=== PATIENT | female | born 1980 | race Caucasian/White ===

== ENCOUNTER 2024-09-22 14:27 | Inpatient (IN) ==
[~2024-09-22 14:27] MED LIST: MAG-OX TAB PO SCH
[2024-09-22] MEDS ORDERED: CATAPRES TAB 0.1 MG ONE (15:11)
[2024-09-22] MEDS: CATAPRES TAB 0.1 MG PO ONE ×2 (15:12→15:51)
[2024-09-22] MEDS: ZESTRIL TAB 10 MG PO ONE (15:51)
[2024-09-22] MEDS: APRESOLINE INJ 20 MG VIAL IVP ONE (16:22)
[2024-09-22 17:13] LABS: BASOPHILS # (AUTO) 0.1 X10^3/uL (0.0-0.1); BASOPHILS % (AUTO) 0.8 % (0.2-1.0); EOSINOPHILS # (AUTO) 0.2 x10^3/uL (0.0-0.2); EOSINOPHILS % (AUTO) 2.6 % (0.9-2.9); HEMATOCRIT 37.6 % (36.0-47.0); HEMOGLOBIN 12.6 g/dL (12.0-16.0); LYMPHOCYTES # (AUTO) 1.4 X10^3/uL (1.3-2.9); LYMPHOCYTES % (AUTO) 15.3 % (21.0-51.0); MEAN CORPUSCULAR HEMOGLOBIN 26.2 pg (27.0-34.0); MEAN CORPUSCULAR HGB CONC 33.6 g/dL (33.0-35.0); MEAN CORPUSCULAR VOLUME 77.9 fL (80.0-100.0); MEAN PLATELET VOLUME 9.1 fL (7.4-11.0); MONOCYTES # (AUTO) 0.4 x10^3/uL (0.3-0.8); MONOCYTES % (AUTO) 4.1 % (0.0-13.0); NEUTROPHILS # (AUTO) 6.8 x10^3/uL (2.2-4.8); NEUTROPHILS % (AUTO) 77.2 % (42.0-75.0); PLATELET COUNT 259 X10^3/uL (150.0-450.0); RED BLOOD COUNT 4.83 X10^6/uL (3.5-5.4); RED CELL DISTRIBUTION WIDTH 15.2 % (11.6-16.5); WHITE BLOOD COUNT 8.9 X10^3/uL (3.6-10.0)
[2024-09-22] MEDS ORDERED: ZOFRAN INJ 4 MG VIAL ONE (17:14)
[2024-09-22] MEDS: ZOFRAN INJ 4 MG VIAL IVP ONE ×2 (17:21→18:42)
[2024-09-22 17:23] LABS: ALANINE AMINOTRANSFERASE 33 Units/L (12-78); ALBUMIN 3.8 g/dL (3.4-5.0); ALKALINE PHOSPHATASE 119 Units/L (46-116); ASPARTATE AMINO TRANSFERASE 18 Units/L (15-37); BLOOD UREA NITROGEN 12 mg/dL (7-18); CALCIUM 9.4 mg/dL (8.5-10.1); CARBON DIOXIDE 31.5 mmol/L (21-32); CHLORIDE 101 mmol/L (98-107); COR NA(FOR HYPERGLY) 139 mmol/L (136-145); GLUCOSE 238 mg/dL (65-99); MAGNESIUM 1.4 mg/dL (2.0-2.9); POTASSIUM 4.1 mmol/L (3.5-5.1); SODIUM 136 mmol/L (136-145); TOTAL PROTEIN 7.8 g/dL (6.4-8.2); eGFR NON BLACK RACES > 60 (>60)
[2024-09-22] MEDS: MAGNESIUM SULFATE 1 GRAM/100 mL PREMIX 1 G/100 ML BAG IV ONE ×2 (17:41→18:42)
--- NOTE | 2024-09-22 18:26 | EKG ---
Test Reason : htn Blood Pressure : */* mmHG Vent. Rate : 79 BPM Atrial Rate : 79 BPM P-R Int : 172 ms QRS Dur : 86 ms QT Int : 370 ms P-R-T Axes : 38 23 27 degrees QTc Int : 424 ms Normal sinus rhythm Cannot rule out Anterior infarct , age undetermined Abnormal ECG No previous ECGs available Confirmed by Piero Freeman MD ([id number]) on 09/23/2024 7:43:55 AM Referred By: Confirmed By: Piero Freeman MD
[2024-09-22 18:27] LABS: SERUM PREGNANCY TEST, QUAL NEGATIVE <10 mIU/mL
[2024-09-22 18:30] LABS: INR 1.06 (0.8-1.3)
[2024-09-22 18:37] LABS: CREATINE KINASE 112 Units/L (26-192)
--- NOTE | 2024-09-22 18:51 | RAD ---
EXAM: CHEST, 1 VIEW HISTORY: HTN; COMPARISON: None. FINDINGS: Upper normal heart size. Prominent pulmonary arteries. Lungs grossly clear. No visible pneumothora x or sizable pleural effusion. No acute osseous finding. IMPRESSION: Upper normal heart size. Prominent pulmonary arteries could reflect pulmonary vascular congestion or pulmonary hypertension. THIS IS AN ELECTRONICALLY VERIFIED FINAL REPORT 09/22/2024 6:47 PM - Electronically signed by Patrice Zavaleta MD
[2024-09-22] MEDS: CARDENE IV PREMIX* 40 MG/200 ML 40 MG/200 ML PIGGYBACK IV PRN (20:10)
--- NOTE | 2024-09-22 20:17 | DR.HTN ---
HPI Time Seen Time Seen by Provider: 09/22/24 18:06 Primary Care Physician Primary Care Physician: ROSELINE HPI Comment HPI Comment: Patient with complaint of headache x 2-day as well as nausea from the headaches. Patient states when her blood pressure goes up this tends to happen. Patient states she used to be on medication for hypertension as well as diabetes but when she lost a lot of weight she went off meds for all of those and was controlled with just diet. Patient states that she gained weight back she thinks her blood pressure has been running higher. Patient denies any neurologic signs other than the headaches that she gets when her blood pressure goes up. Denies any weakness. Denies numbness or tingling. Complaints Chief Complaint:: Pt states she has a hx of HTN but does not have a PCP. Pt c/o AYERS X 2 days that is now making her nauseated. Pt went to [facility] earlier today and had them check her BP - 177/113. 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 Family History History of Family Medical Conditions: Yes Family Medical History: Diabetes Mellitus, Cancer and Hypertension Social History Alcohol Use: None Do you use any recreational Drugs:: No Lives With: Alone Lives Where: Home Travel Risk Coronavirus risk:travel/contact w/high risk person: No Has patient experienced Coronavirus symptoms: No Infectious screening Have you traveled outside the country in the last 6 months?: No Isolation: Standard ROS Review of Systems Constitutional: No Symptoms Reported Eyes: No Symptoms Reported ENTM: No Symptoms Reported Respiratoy: No Symptoms Reported Cardiovascular: No Symptoms Reported Gastrointestinal/Abdominal: No Symptoms Reported, Nausea and Vomiting; negative Abdominal Pain, Constipation or Diarrhea Genitourinary: No Symptoms Reported Neurological: See HPI and Headache; negative Numbness, Paresthesia, Seizure, Tingling, Weakness or Dizziness Musculoskeletal: No Symptoms Reported Integumentary: No Symptoms Reported Hematologic/Lymphatic: No Symptoms Reported Endocrine: No Symptoms Reported Psychiatric: No Symptoms Reported All Other Systems: Reviewed and Negative PE Vital Signs Vitals: Vital Signs Temperature 97.9 F Pulse Rate 78 Pulse Rate 78 Pulse Rate 80 Pulse Rate 88 Pulse Rate 78 Pulse Rate 76 Pulse Rate 78 Pulse Rate 78 Pulse Rate 80 Pulse Rate 79 Pulse Rate 78 Pulse Rate 76 Pulse Rate 75 Pulse Rate 75 Pulse Rate 76 Pulse Rate 75 Pulse Rate 75 Pulse Rate 74 Pulse Rate 72 Pulse Rate 74 Pulse Rate 74 Pulse Rate 73 Pulse Rate 72 Pulse Rate 75 Pulse Rate 69 Pulse Rate 72 Pulse Rate 72 Pulse Rate 73 Pulse Rate 71 Pulse Rate 68 Pulse Rate 67 Pulse Rate 67 Pulse Rate 68 Pulse Rate 67 Pulse Rate 68 Pulse Rate 64 Pulse Rate 64 Pulse Rate 68 Pulse Rate 68 Pulse Rate 67 Pulse Rate 68 Pulse Rate 71 Pulse Rate 70 Pulse Rate 73 Pulse Rate 76 Respiratory Rate 13 Respiratory Rate 16 Respiratory Rate 16 Respiratory Rate 15 Respiratory Rate 15 Respiratory Rate 15 Respiratory Rate 14 Respiratory Rate 16 Respiratory Rate 14 Respiratory Rate 14 Respiratory Rate 13 Respiratory Rate 16 Respiratory Rate 13 Respiratory Rate 14 Respiratory Rate 13 Respiratory Rate 12 Respiratory Rate 13 Respiratory Rate 13 Respiratory Rate 13 Respiratory Rate 15 Respiratory Rate 17 Respiratory Rate 21 Respiratory Rate 16 Respiratory Rate 14 Respiratory Rate 13 Respiratory Rate 12 Respiratory Rate 10 Respiratory Rate 10 Respiratory Rate 13 Respiratory Rate 13 Respiratory Rate 14 Respiratory Rate 16 Respiratory Rate 12 Respiratory Rate 12 Respiratory Rate 19 Respiratory Rate 19 Blood Pressure 199/96 Blood Pressure 180/83 Blood Pressure 204/94 Blood Pressure 188/87 Blood Pressure 178/87 Blood Pressure 167/84 Blood Pressure 169/87 Blood Pressure 169/87 Blood Pressure 169/87 Blood Pressure 176/89 Blood Pressure 193/91 Blood Pressure 199/86 Blood Pressure 181/84 Blood Pressure 184/75 Blood Pressure 186/89 Blood Pressure 187/85 Blood Pressure 180/88 Blood Pressure 186/89 Blood Pressure 198/86 Blood Pressure 198/96 Blood Pressure 178/89 Blood Pressure 190/93 Blood Pressure 184/90 Blood Pressure 184/90 Blood Pressure 187/88 Blood Pressure 187/88 Blood Pressure 193/92 Blood Pressure 197/92 Blood Pressure 192/84 Blood Pressure 193/88 Blood Pressure 208/100 Blood Pressure 218/93 Blood Pressure 218/93 Blood Pressure 208/94 Blood Pressure 208/94 Blood Pressure 208/94 Blood Pressure 182/87 Blood Pressure 182/87 Blood Pressure 182/87 Blood Pressure 182/87 Blood Pressure 185/86 Blood Pressure 195/84 Blood Pressure 180/86 Blood Pressure 186/89 Blood Pressure 198/95 O2 Sat by Pulse Oximetry 99 O2 Sat by Pulse Oximetry 98 O2 Sat by Pulse Oximetry 99 O2 Sat by Pulse Oximetry 98 O2 Sat by Pulse Oximetry 99 O2 Sat by Pulse Oximetry 99 O2 Sat by Pulse Oximetry 99 O2 Sat by Pulse Oximetry 98 O2 Sat by Pulse Oximetry 98 O2 Sat by Pulse Oximetry 99 O2 Sat by Pulse Oximetry 100 O2 Sat by Pulse Oximetry 100 O2 Sat by Pulse Oximetry 99 O2 Sat by Pulse Oximetry 100 O2 Sat by Pulse Oximetry 100 O2 Sat by Pulse Oximetry 100 O2 Sat by Pulse Oximetry 100 O2 Sat by Pulse Oximetry 100 O2 Sat by Pulse Oximetry 100 O2 Sat by Pulse Oximetry 100 O2 Sat by Pulse Oximetry 100 O2 Sat by Pulse Oximetry 100 O2 Sat by Pulse Oximetry 100 O2 Sat by Pulse Oximetry 100 O2 Sat by Pulse Oximetry 100 O2 Sat by Pulse Oximetry 100 O2 Sat by Pulse Oximetry 97 O2 Sat by Pulse Oximetry 99 O2 Sat by Pulse Oximetry 98 O2 Sat by Pulse Oximetry 97 O2 Sat by Pulse Oximetry 97 O2 Sat by Pulse Oximetry 96 O2 Sat by Pulse Oximetry 97 O2 Sat by Pulse Oximetry 97 O2 Sat by Pulse Oximetry 97 O2 Sat by Pulse Oximetry 97 O2 Sat by Pulse Oximetry 96 O2 Sat by Pulse Oximetry 97 O2 Sat by Pulse Oximetry 96 General Limitations: No Limitations General Appearance: Alert and In No Apparent Distress Head Head Exam: Normal Inspection Eyes Eye exam: Normal Appearance ENT ENT Exam: Normal Exam Neck Neck Exam: Normal Inspection Chest Chest Inspection: Normal Inspection Respiratory Respiratory Exam: Normal Lung Sounds Bilat Respiratory Exam: Bilateral: Clear to Auscultation Cardiovascular Cardiovascular Exam: Regular Rate and Normal Rhythm Abdominal Exam Abdominal Exam: Normal Inspection, Normal Bowel Sounds and Soft; negative Distention, Tenderness, Guarding, Rebound or Rigidity Extremities Extremities Exam: Normal Inspection Back Back Exam: Normal Inspection Neurologic Neurological Exam: Alert, Oriented X3, CN II-XII Intact, Normal Gait and Reflexes Normal; negative Motor Sensory Deficit Psychiatric Psychiatric Exam: Normal Affect and Normal Mood Skin Skin Exam: Warm, Dry, Intact and Normal Color COURSE Treatment Treatment: Patient had some improvement while in the ER but blood pressure continues to elevate and as it goes up her headache returns as well as the nausea. We have tried multiple doses of different medications and finally have started on nicardipine drip. Phenergan added to the Zofran. Toradol injection for the headache. Consultation Called: 20:23 Consultation Comments: Discussed case with Dr. Garzon and he is agreeable to admission. [facility] Labs Reviewed 09/22/24 17:05 09/22/24 17:05 Laboratory: WBC 8.9 X10^3/uL (3.6-10.0) 09/22/24 17:05 RBC 4.83 X10^6/uL (3.5-5.4) 09/22/24 17:05 Hgb 12.6 g/dL (12.0-16.0) 09/22/24 17:05 Hct 37.6 % (36.0-47.0) 09/22/24 17:05 MCV 77.9 fL (80.0-100.0) L 09/22/24 17:05 MCH 26.2 pg (27.0-34.0) L 09/22/24 17:05 MCHC 33.6 g/dL (33.0-35.0) 09/22/24 17:05 RDW 15.2 % (11.6-16.5) 09/22/24 17:05 Plt Count 259 X10^3/uL (150.0-450.0) 09/22/24 17:05 MPV 9.1 fL (7.4-11.0) 09/22/24 17:05 Neut % (Auto) 77.2 % (42.0-75.0) H 09/22/24 17:05 Lymph % (Auto) 15.3 % (21.0-51.0) L 09/22/24 17:05 [place] % (Auto) 4.1 % (0.0-13.0) 09/22/24 17:05 Eos % (Auto) 2.6 % (0.9-2.9) 09/22/24 17:05 Baso % (Auto) 0.8 % (0.2-1.0) 09/22/24 17:05 Neut # (Auto) 6.8 x10^3/uL (2.2-4.8) H 09/22/24 17:05 Lymph # (Auto) 1.4 X10^3/uL (1.3-2.9) 09/22/24 17:05 [place] # (Auto) 0.4 x10^3/uL (0.3-0.8) 09/22/24 17:05 Eos # (Auto) 0.2 x10^3/uL (0.0-0.2) 09/22/24 17:05 Baso # (Auto) 0.1 X10^3/uL (0.0-0.1) 09/22/24 17:05 Absolute Nucleated RBC 0.0 /100WBC 09/22/24 17:05 PT 14.0 SECONDS (11.8-14.3) 09/22/24 17:05 INR Target Range - 09/22/24 17:05 INR 1.06 (0.8-1.3) 09/22/24 17:05 APTT 29.4 SECONDS (22.9-36.5) 09/22/24 17:05 PTT Comment - 09/22/24 17:05 Sodium 136 mmol/L (136-145) 09/22/24 17:05 Corrected Sodium 139 mmol/L (136-145) 09/22/24 17:05 Potassium 4.1 mmol/L (3.5-5.1) 09/22/24 17:05 Chloride 101 mmol/L (98-107) 09/22/24 17:05 Carbon Dioxide 31.5 mmol/L (21-32) 09/22/24 17:05 BUN 12 mg/dL (7-18) 09/22/24 17:05 Creatinine 0.80 mg/dL (0.55-1.02) 09/22/24 17:05 Est GFR (MDRD) Af Amer > 60 (>60) 09/22/24 17:05 Est GFR (MDRD) Non-Af > 60 (>60) 09/22/24 17:05 Glucose 238 mg/dL (65-99) H 09/22/24 17:05 Calcium 9.4 mg/dL (8.5-10.1) 09/22/24 17:05 Corrected Calcium TNP 09/22/24 17:05 Magnesium 1.4 mg/dL (2.0-2.9) L 09/22/24 17:05 Total Bilirubin 0.30 mg/dL (0.2-1.0) 09/22/24 17:05 AST 18 Units/L (15-37) 09/22/24 17:05 ALT 33 Units/L (12-78) 09/22/24 17:05 Alkaline Phosphatase 119 Units/L (46-116) H 09/22/24 17:05 Creatine Kinase 112 Units/L (26-192) 09/22/24 17:05 Troponin I High Sens < 4.0 ng/L (4.0-60.0) L 09/22/24 17:05 Total Protein 7.8 g/dL (6.4-8.2) 09/22/24 17:05 Albumin 3.8 g/dL (3.4-5.0) 09/22/24 17:05 Globulin 4.0 g/dL (2.5-4.5) 09/22/24 17:05 Albumin/Globulin Ratio 1.0 Ratio (1.1-2.1) L 09/22/24 17:05 HCG, Qual Negative <10 mIU/mL 09/22/24 17:05 Opioid Opioid Risk Tool Age (Parker box if 16-45): Yes History of Preadolescent Sexual Abuse: No Total: 1 Total Score Risk Category: Low Risk Copyright: Renny LUJAN predicting aberrant behaviors Discharge Plan Diagnosis Discharge Problem: Hypertensive emergency without congestive heart failure, Headache Discharge Plan Patient Disposition: 09 ADMITTED INPATIENT Condition: Stable Prescriptions: No Action levocetirizine [Xyzal] 5 mg tablet 5 mg PO QDAY 30 Days Qty: 30 1RF Health Concerns: Post Hospitalization: new medications and changes needed to prevent readmission or further decline. Pt educated and given instructions on all concerns. Plan of Treatment: Continue with present treatment and follow up plan. Pt is to keep follow up appointment as instructed and take medications as ordered. Orders to Discharge Patient Discharge Orders: Transfer (Routine); Ordered 09/22/24 Ordered By: Keith Mahan Follow ups/Referrals Follow ups/Referrals: NFD,None [Primary Care Provider] - 3 days Instructions Stand Alone Forms: Find Help Web Site, Post Hospital Follow Up Care
[2024-09-22] MEDS: NS 500 ML IV 500 ML IV ONE (20:26)
[2024-09-22] MEDS: PHENERGAN INJ 25 MG IM ONE (20:27)
[2024-09-22] MEDS: TORADOL 15 MG VIAL IVP ONE (20:28)
[2024-09-22] MEDS ORDERED: CONSULT PHARMACY - POTASSIUM & MAGNESIUM XX SCH (21:16)
[2024-09-22 21:31] VITALS: BMI 42.3
[2024-09-22] MEDS: NovoLIN R (or HumuLIN R) SUBCUT PRN (21:49)
[2024-09-22] MEDS: NS 1,000 ML IV 1,000 ML IV SCH (21:50)
[2024-09-23 05:09] LABS: BASOPHILS # (AUTO) 0.1 X10^3/uL (0.0-0.1); BASOPHILS % (AUTO) 0.5 % (0.2-1.0); EOSINOPHILS # (AUTO) 0.1 x10^3/uL (0.0-0.2); EOSINOPHILS % (AUTO) 1.1 % (0.9-2.9); HEMATOCRIT 37.1 % (36.0-47.0); HEMOGLOBIN 12.3 g/dL (12.0-16.0); LYMPHOCYTES % (AUTO) 16.6 % (21.0-51.0); MEAN CORPUSCULAR HEMOGLOBIN 25.8 pg (27.0-34.0); MEAN CORPUSCULAR HGB CONC 33.2 g/dL (33.0-35.0); MEAN CORPUSCULAR VOLUME 77.6 fL (80.0-100.0); MEAN PLATELET VOLUME 9.4 fL (7.4-11.0); MONOCYTES # (AUTO) 0.6 x10^3/uL (0.3-0.8); MONOCYTES % (AUTO) 4.7 % (0.0-13.0); NEUTROPHILS # (AUTO) 9.4 x10^3/uL (2.2-4.8); NEUTROPHILS % (AUTO) 77.1 % (42.0-75.0); PLATELET COUNT 281 X10^3/uL (150.0-450.0); RED BLOOD COUNT 4.79 X10^6/uL (3.5-5.4); RED CELL DISTRIBUTION WIDTH 15.3 % (11.6-16.5); WHITE BLOOD COUNT 12.2 X10^3/uL (3.6-10.0)
[2024-09-23 05:24] LABS: ALANINE AMINOTRANSFERASE 25 Units/L (12-78); ALBUMIN 3.4 g/dL (3.4-5.0); ALKALINE PHOSPHATASE 103 Units/L (46-116); ASPARTATE AMINO TRANSFERASE 18 Units/L (15-37); BLOOD UREA NITROGEN 10 mg/dL (7-18); CALCIUM 8.8 mg/dL (8.5-10.1); CARBON DIOXIDE 24.9 mmol/L (21-32); CHLORIDE 101 mmol/L (98-107); COR NA(FOR HYPERGLY) 141 mmol/L (136-145); CREATININE 0.63 mg/dL (0.55-1.02); GLUCOSE 172 mg/dL (65-99); POTASSIUM 3.5 mmol/L (3.5-5.1); SODIUM 139 mmol/L (136-145); TOTAL PROTEIN 7.3 g/dL (6.4-8.2); eGFR NON BLACK RACES > 60 (>60)
[2024-09-23] MEDS ORDERED: ZESTRIL TAB 20 MG PO SCH (09:00)
[2024-09-23] MEDS ORDERED: CONSULT PHARMACY - POTASSIUM & MAGNESIUM XX SCH (09:00)
--- NOTE | 2024-09-23 09:35 | DR.H&P ---
H&P History & Physical for Day of: H&P Date: 09/23/24 Chief Complaint Chief Complaint: headache, elevated BP History of Present Illness History of Present Illness: Ms. Vila is a 43-year-old female with a past medical history of type 2 diabetes, hypertension presented with headache, nausea and elevated BP. She used to be on blood pressure medication years ago but stopped as she had significant weight loss. She says she has gained 50 pounds back and did not restart taking her blood pressure medications. She was seen fo jhonathan MADISON a few weeks ago and was noted to have elevated blood pressure but did not follow-up. She reports having worsening headache and nausea for the past couple days. She also had intermittent shortness of breath. She checked her blood pressure yesterday and it was 177/113. In the ER her blood pressure was 204/94. She was given hydralazine, clonidine, lisinopril but her blood pressure continued to remain elevated. She was started on Cardene drip and admitted for further management. She was admitted to the ICU. She is feeling better this morning. Her blood pressure is better controlled, 132/68 this morning. She is currently on 2.5 mg of Cardene. Lab/imaging reviewed: - WBC 12.2 hemoglobin 12.3 potassium 3.5 magnesium 1.7 - Chest x-ray reviewed Plan: Continue to monitor in ICU. Continue telemetry. Stop Cardene drip, start lisinopril 10 mg daily. Monitor blood pressure closely. Patient reports having a history of murmur when she was younger but never followed up. Will order echocardiogram. Replace electrolytes as per protocol. Monitor a.m. labs and imaging. Time spent for clinical assessment, reviewing labs/imaging, physical exam, decision making and documentation greater than 45 mins. 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 Family History Family Medical History: Diabetes Mellitus and Hypertension Social History Alcohol Use: None Drug Use: None Allergies Allergies Allergy/AdvReac Type Severity Reaction Status Date / Time No Known Allergies Allergy Verified 09/22/24 14:56 Labs 09/23/24 04:12 09/23/24 04:12 Labs: Laboratory WBC 12.2 X10^3/uL (3.6-10.0) H 09/23/24 04:12 RBC 4.79 X10^6/uL (3.5-5.4) 09/23/24 04:12 Hgb 12.3 g/dL (12.0-16.0) 09/23/24 04:12 Hct 37.1 % (36.0-47.0) 09/23/24 04:12 MCV 77.6 fL (80.0-100.0) L 09/23/24 04:12 MCH 25.8 pg (27.0-34.0) L 09/23/24 04:12 MCHC 33.2 g/dL (33.0-35.0) 09/23/24 04:12 RDW 15.3 % (11.6-16.5) 09/23/24 04:12 Plt Count 281 X10^3/uL (150.0-450.0) 09/23/24 04:12 MPV 9.4 fL (7.4-11.0) 09/23/24 04:12 Neut % (Auto) 77.1 % (42.0-75.0) H 09/23/24 04:12 Lymph % (Auto) 16.6 % (21.0-51.0) L 09/23/24 04:12 [place] % (Auto) 4.7 % (0.0-13.0) 09/23/24 04:12 Eos % (Auto) 1.1 % (0.9-2.9) 09/23/24 04:12 Baso % (Auto) 0.5 % (0.2-1.0) 09/23/24 04:12 Neut # (Auto) 9.4 x10^3/uL (2.2-4.8) H 09/23/24 04:12 Lymph # (Auto) 2.0 X10^3/uL (1.3-2.9) 09/23/24 04:12 [place] # (Auto) 0.6 x10^3/uL (0.3-0.8) 09/23/24 04:12 Eos # (Auto) 0.1 x10^3/uL (0.0-0.2) 09/23/24 04:12 Baso # (Auto) 0.1 X10^3/uL (0.0-0.1) 09/23/24 04:12 Absolute Nucleated RBC 0.0 /100WBC 09/23/24 04:12 PT 14.0 SECONDS (11.8-14.3) 09/22/24 17:05 INR Target Range - 09/22/24 17:05 INR 1.06 (0.8-1.3) 09/22/24 17:05 APTT 29.4 SECONDS (22.9-36.5) 09/22/24 17:05 PTT Comment - 09/22/24 17:05 Sodium 139 mmol/L (136-145) 09/23/24 04:12 Corrected Sodium 141 mmol/L (136-145) 09/23/24 04:12 Potassium 3.5 mmol/L (3.5-5.1) 09/23/24 04:12 Chloride 101 mmol/L (98-107) 09/23/24 04:12 Carbon Dioxide 24.9 mmol/L (21-32) 09/23/24 04:12 BUN 10 mg/dL (7-18) 09/23/24 04:12 Creatinine 0.63 mg/dL (0.55-1.02) 09/23/24 04:12 Est GFR (MDRD) Af Amer > 60 (>60) 09/23/24 04:12 Est GFR (MDRD) Non-Af > 60 (>60) 09/23/24 04:12 Glucose 172 mg/dL (65-99) H 09/23/24 04:12 POC Glucose (mg/dL) 164 mg/dL (65-99) H 09/23/24 05:06 Calcium 8.8 mg/dL (8.5-10.1) 09/23/24 04:12 Corrected Calcium TNP 09/23/24 04:12 Magnesium 1.7 mg/dL (2.0-2.9) L 09/23/24 04:12 Total Bilirubin 0.30 mg/dL (0.2-1.0) 09/23/24 04:12 AST 18 Units/L (15-37) 09/23/24 04:12 ALT 25 Units/L (12-78) 09/23/24 04:12 Alkaline Phosphatase 103 Units/L (46-116) 09/23/24 04:12 Creatine Kinase 112 Units/L (26-192) 09/22/24 17:05 Troponin I High Sens < 4.0 ng/L (4.0-60.0) L 09/22/24 20:10 Total Protein 7.3 g/dL (6.4-8.2) 09/23/24 04:12 Albumin 3.4 g/dL (3.4-5.0) 09/23/24 04:12 Globulin 3.9 g/dL (2.5-4.5) 09/23/24 04:12 Albumin/Globulin Ratio 0.9 Ratio (1.1-2.1) L 09/23/24 04:12 HCG, Qual Negative <10 mIU/mL 09/22/24 17:05 Review of Systems Constitutional: No Symptoms Reported Eyes: No Symptoms Reported Respiratory: Shortness of Breath Cardiovascular: No Symptoms Reported Gastrointestinal: No Symptoms Reported Genitourinary: No Symptoms Reported Musculoskeletal: No Symptoms Reported Skin: No Symptoms Reported Neurological: Other (headache ) Physical Exam Vital Signs: Vital Signs Temperature 98.1 F Temperature 98 F Pulse Rate 79 Pulse Rate 71 Pulse Rate 75 Pulse Rate 69 Pulse Rate 67 Pulse Rate 74 Pulse Rate 74 Pulse Rate 65 Pulse Rate 83 Pulse Rate 75 Pulse Rate 69 Pulse Rate 69 Pulse Rate 70 Pulse Rate 72 Pulse Rate 72 Pulse Rate 69 Pulse Rate 73 Pulse Rate 72 Pulse Rate 72 Pulse Rate 80 Pulse Rate 75 Pulse Rate 73 Pulse Rate 79 Respiratory Rate 23 Respiratory Rate 12 Respiratory Rate 13 Respiratory Rate 14 Respiratory Rate 15 Respiratory Rate 17 Respiratory Rate 13 Respiratory Rate 14 Respiratory Rate 19 Respiratory Rate 16 Respiratory Rate 14 Respiratory Rate 14 Respiratory Rate 13 Respiratory Rate 14 Respiratory Rate 15 Respiratory Rate 15 Respiratory Rate 15 Respiratory Rate 19 Respiratory Rate 13 Respiratory Rate 31 Respiratory Rate 17 Respiratory Rate 17 Respiratory Rate 26 Blood Pressure 132/68 Blood Pressure 136/60 Blood Pressure 109/57 Blood Pressure 105/55 Blood Pressure 112/60 Blood Pressure 121/57 Blood Pressure 116/56 Blood Pressure 112/57 Blood Pressure 111/59 Blood Pressure 104/61 Blood Pressure 114/61 Blood Pressure 111/59 Blood Pressure 109/59 Blood Pressure 107/55 Blood Pressure 107/51 Blood Pressure 115/57 Blood Pressure 127/62 Blood Pressure 117/56 Blood Pressure 119/57 Blood Pressure 121/57 Blood Pressure 125/57 Blood Pressure 108/54 Blood Pressure 106/57 O2 Sat by Pulse Oximetry 96 O2 Sat by Pulse Oximetry 97 O2 Sat by Pulse Oximetry 91 O2 Sat by Pulse Oximetry 93 O2 Sat by Pulse Oximetry 95 O2 Sat by Pulse Oximetry 99 O2 Sat by Pulse Oximetry 96 O2 Sat by Pulse Oximetry 95 O2 Sat by Pulse Oximetry 97 O2 Sat by Pulse Oximetry 92 O2 Sat by Pulse Oximetry 93 O2 Sat by Pulse Oximetry 93 O2 Sat by Pulse Oximetry 92 O2 Sat by Pulse Oximetry 91 O2 Sat by Pulse Oximetry 91 O2 Sat by Pulse Oximetry 96 O2 Sat by Pulse Oximetry 95 O2 Sat by Pulse Oximetry 94 O2 Sat by Pulse Oximetry 95 O2 Sat by Pulse Oximetry 97 O2 Sat by Pulse Oximetry 93 O2 Sat by Pulse Oximetry 94 O2 Sat by Pulse Oximetry 97 Oriented: Normal Throat: Normal Respiratory: Clear Throughout Cardiovascular: Normal Auscultation: Bowel Sounds: Normal Palpation: Normal Tenderness: Normal Skin: Normal Musculoskeletal: Normal Psychiatric: Normal Mood Description: Calm Affect: Normal Speech Pattern: Clear and Appropriate Assessment/Plan (1) Hypertensive emergency without congestive heart failure: Status: Acute (2) Headache: Qualifiers: Headache type: other headache syndrome Qualified Code(s): G44.89 - Other headache syndrome Status: Acute (3) Heart murmur: Status: Chronic (4) Hypokalemia: Status: Acute (5) Hypomagnesemia: Status: Acute (6) Type 2 diabetes mellitus: Qualifiers: Diabetes mellitus complication status: with hyperglycemia Diabetes mellitus penitentiary insulin use: without penitentiary use Qualified Code(s): E11.65 - Type 2 diabetes mellitus with hyperglycemia Status: Chronic (7) HTN (hypertension): Qualifiers: Hypertension type: primary hypertension Qualified Code(s): I10 - Essential (primary) hypertension Status: Chronic Review H&P Reviewed: Yes Patient was examined?: Yes
[2024-09-23] MEDS: K-DUR TAB 20 MEQ PO SCH (10:56)
[2024-09-23] MEDS: MAG-OX TAB PO SCH (10:56)
[2024-09-23] MEDS: ZESTRIL TAB 10 MG PO SCH (10:57)
--- NOTE | 2024-09-23 15:10 | RAD ---
EXAM: CHEST, 1 VIEW HISTORY: increased WBC; Unavailable COMPARISON: Yesterday FINDINGS: The trachea is midline. The cardiac silhouette is unremarkable. The lungs are clear without focal inf iltrate or effusion. The bony thorax is unremarkable. IMPRESSION: No acute cardiopulmonary disease. THIS IS AN ELECTRONICALLY VERIFIED FINAL REPORT 09/23/2024 3:06 PM - Electronically signed by Андрей Jeffries MD
[2024-09-23] MEDS: SNACK - Diabetic Appropriate PO SCH (21:05)
[2024-09-24 04:52] LABS: BASOPHILS % (AUTO) 0.6 % (0.2-1.0); EOSINOPHILS # (AUTO) 0.3 x10^3/uL (0.0-0.2); EOSINOPHILS % (AUTO) 3.5 % (0.9-2.9); HEMATOCRIT 35.3 % (36.0-47.0); HEMOGLOBIN 11.9 g/dL (12.0-16.0); LYMPHOCYTES # (AUTO) 1.9 X10^3/uL (1.3-2.9); LYMPHOCYTES % (AUTO) 25.7 % (21.0-51.0); MEAN CORPUSCULAR HEMOGLOBIN 26.2 pg (27.0-34.0); MEAN CORPUSCULAR HGB CONC 33.6 g/dL (33.0-35.0); MEAN CORPUSCULAR VOLUME 78.1 fL (80.0-100.0); MEAN PLATELET VOLUME 9.5 fL (7.4-11.0); MONOCYTES # (AUTO) 0.5 x10^3/uL (0.3-0.8); NEUTROPHILS # (AUTO) 4.9 x10^3/uL (2.2-4.8); NEUTROPHILS % (AUTO) 64.2 % (42.0-75.0); PLATELET COUNT 221 X10^3/uL (150.0-450.0); RED BLOOD COUNT 4.53 X10^6/uL (3.5-5.4); RED CELL DISTRIBUTION WIDTH 15.6 % (11.6-16.5); WHITE BLOOD COUNT 7.6 X10^3/uL (3.6-10.0)
[2024-09-24 05:03] LABS: ALANINE AMINOTRANSFERASE 22 Units/L (12-78); ALBUMIN 2.9 g/dL (3.4-5.0); ALKALINE PHOSPHATASE 90 Units/L (46-116); ASPARTATE AMINO TRANSFERASE 16 Units/L (15-37); BLOOD UREA NITROGEN 11 mg/dL (7-18); CALCIUM 8.8 mg/dL (8.5-10.1); CARBON DIOXIDE 27.1 mmol/L (21-32); CHLORIDE 103 mmol/L (98-107); COR CA(FOR HYPOALB) 9.7 mg/dL (8.5-10.1); COR NA(FOR HYPERGLY) 142 mmol/L (136-145); CREATININE 0.68 mg/dL (0.55-1.02); GLUCOSE 213 mg/dL (65-99); MAGNESIUM 1.6 mg/dL (2.0-2.9); POTASSIUM 3.9 mmol/L (3.5-5.1); SODIUM 139 mmol/L (136-145); TOTAL PROTEIN 6.4 g/dL (6.4-8.2); eGFR NON BLACK RACES > 60 (>60)
[2024-09-24] MEDS: CONSULT PHARMACY - POTASSIUM & MAGNESIUM XX SCH (08:00)
[2024-09-24 09:35] VITALS: PULSE 61; RESP 16
[2024-09-24] MEDS: MAG-OX TAB PO SCH (09:35)
[2024-09-24 13:50] VITALS: BP 155/80; TEMP 98.2; O2SAT 99
--- NOTE | 2024-09-25 11:59 | W.DIS.FURT ---
Summary of Discharge Discharge Summary of Date Date of Exam: 09/24/24 Admission Date Date of Admission: 09/22/24 Admission Diagnosis Patient Problems (Updated 09/23/24 @ 09:34 by Kimber Escalante MD) Hypertensive emergency without congestive heart failure (Acute) I16.1 Headache (Acute) R51.9 Hospital Course: Ms. Vila is a 43-year-old female with a past medical history of type 2 diabetes, hypertension presented with headache, nausea and elevated BP. She used to be on blood pressure medication years ago but stopped as she had significant weight loss. She says she has gained 50 pounds back and did not restart taking her blood pressure medications. She was seen for URI a few weeks ago and was noted to have elevated blood pressure but did not follow-up. She reports having worsening headache and nausea for the past couple days. She also had intermittent shortness of breath. She checked her blood pressure yesterday and it was 177/113. In the ER her blood pressure was 204/94. She was given hydralazine, clonidine, lisinopril but her blood pressure continued to remain elevated. She was started on Cardene drip and admitted for further management. She was admitted to the ICU. She is feeling better this morning. Her blood pressure is better controlled, 132/68 this morning. She was weaned off Cardene drip. She was started on lisinopril 10 mg. Her labs were monitored daily and electrolytes replaced as needed. Repeat chest x-ray was clear. She also had echocardiogram done. Patient was feeling better and stable to be discharged. She will follow-up with PCP regarding hypertension and diabetes. She will also follow-up patient for echo results. Vital Signs: Vital Signs (72 hours) 09/22/24 14:49 09/22/24 15:07 09/22/24 15:08 Temperature 97.9 F Pulse Rate 76 73 Respiratory Rate 19 19 Blood Pressure 198/95 186/89 O2 Sat by Pulse Oximetry 96 97 Oxygen Delivery Method Room Air Oxygen Flow Rate FIO2% 09/22/24 15:08 09/22/24 15:15 09/22/24 15:20 Temperature Pulse Rate 70 71 Respiratory Rate 12 12 Blood Pressure 180/86 O2 Sat by Pulse Oximetry 96 97 Oxygen Delivery Method Oxygen Flow Rate FIO2% 09/22/24 15:20 09/22/24 15:30 09/22/24 15:30 Temperature Pulse Rate 68 67 Respiratory Rate 16 14 Blood Pressure 195/84 O2 Sat by Pulse Oximetry 97 97 Oxygen Delivery Method Oxygen Flow Rate FIO2% 09/22/24 15:40 09/22/24 15:40 09/22/24 15:45 Temperature Pulse Rate 68 68 Respiratory Rate 13 13 Blood Pressure 185/86 O2 Sat by Pulse Oximetry 97 96 Oxygen Delivery Method Oxygen Flow Rate FIO2% 09/22/24 15:50 09/22/24 15:50 09/22/24 15:50 Temperature Pulse Rate 64 Respiratory Rate 10 L Blood Pressure 182/87 182/87 O2 Sat by Pulse Oximetry 97 Oxygen Delivery Method Oxygen Flow Rate FIO2% 09/22/24 15:50 09/22/24 15:50 09/22/24 15:50 Temperature Pulse Rate 64 Respiratory Rate 10 L Blood Pressure 182/87 182/87 O2 Sat by Pulse Oximetry 97 Oxygen Delivery Method Oxygen Flow Rate FIO2% 09/22/24 15:59 09/22/24 16:00 09/22/24 16:00 Temperature Pulse Rate 68 Respiratory Rate 12 Blood Pressure 208/94 208/94 O2 Sat by Pulse Oximetry 98 Oxygen Delivery Method Oxygen Flow Rate FIO2% 09/22/24 16:00 09/22/24 16:01 09/22/24 16:11 Temperature Pulse Rate 67 68 Respiratory Rate 13 14 Blood Pressure 208/94 O2 Sat by Pulse Oximetry 99 97 Oxygen Delivery Method Oxygen Flow Rate FIO2% 09/22/24 16:11 09/22/24 16:11 09/22/24 16:15 Temperature Pulse Rate 67 Respiratory Rate 16 Blood Pressure 218/93 218/93 O2 Sat by Pulse Oximetry 100 Oxygen Delivery Method Oxygen Flow Rate FIO2% 09/22/24 16:20 09/22/24 16:20 09/22/24 16:25 Temperature Pulse Rate 67 68 Respiratory Rate 21 17 Blood Pressure 208/100 O2 Sat by Pulse Oximetry 100 100 Oxygen Delivery Method Oxygen Flow Rate FIO2% 09/22/24 16:25 09/22/24 16:30 09/22/24 16:30 Temperature Pulse Rate 71 Respiratory Rate 15 Blood Pressure 193/88 192/84 O2 Sat by Pulse Oximetry 100 Oxygen Delivery Method Oxygen Flow Rate FIO2% 09/22/24 16:35 09/22/24 16:35 09/22/24 16:40 Temperature Pulse Rate 73 72 Respiratory Rate 13 13 Blood Pressure 197/92 O2 Sat by Pulse Oximetry 100 100 Oxygen Delivery Method Oxygen Flow Rate FIO2% 09/22/24 16:40 09/22/24 16:45 09/22/24 16:45 Temperature Pulse Rate Respiratory Rate Blood Pressure 193/92 187/88 187/88 O2 Sat by Pulse Oximetry Oxygen Delivery Method Oxygen Flow Rate FIO2% 09/22/24 16:45 09/22/24 16:50 09/22/24 16:50 Temperature Pulse Rate 72 Respiratory Rate 13 Blood Pressure 184/90 184/90 O2 Sat by Pulse Oximetry 100 Oxygen Delivery Method Oxygen Flow Rate FIO2% 09/22/24 16:50 09/22/24 16:55 09/22/24 16:55 Temperature Pulse Rate 69 75 Respiratory Rate 12 13 Blood Pressure 190/93 O2 Sat by Pulse Oximetry 100 100 Oxygen Delivery Method Oxygen Flow Rate FIO2% 09/22/24 16:59 09/22/24 17:00 09/22/24 17:00 Temperature Pulse Rate 72 73 Respiratory Rate 14 13 Blood Pressure 178/89 O2 Sat by Pulse Oximetry 100 100 Oxygen Delivery Method Oxygen Flow Rate FIO2% 09/22/24 17:05 09/22/24 17:05 09/22/24 17:10 Temperature Pulse Rate 74 Respiratory Rate 16 Blood Pressure 198/96 198/86 O2 Sat by Pulse Oximetry 100 Oxygen Delivery Method Oxygen Flow Rate FIO2% 09/22/24 17:10 09/22/24 17:20 09/22/24 17:21 Temperature Pulse Rate 74 72 Respiratory Rate 13 Blood Pressure O2 Sat by Pulse Oximetry 100 99 100 Oxygen Delivery Method Oxygen Flow Rate FIO2% 09/22/24 17:21 09/22/24 17:25 09/22/24 17:25 Temperature Pulse Rate 74 Respiratory Rate Blood Pressure 186/89 180/88 O2 Sat by Pulse Oximetry 100 Oxygen Delivery Method Oxygen Flow Rate FIO2% 09/22/24 17:30 09/22/24 17:30 09/22/24 17:35 Temperature Pulse Rate 75 75 Respiratory Rate Blood Pressure 187/85 O2 Sat by Pulse Oximetry 99 98 Oxygen Delivery Method Oxygen Flow Rate FIO2% 09/22/24 17:35 09/22/24 17:40 09/22/24 17:40 Temperature Pulse Rate 76 Respiratory Rate Blood Pressure 186/89 184/75 O2 Sat by Pulse Oximetry 98 Oxygen Delivery Method Oxygen Flow Rate FIO2% 09/22/24 17:45 09/22/24 17:45 09/22/24 18:00 Temperature Pulse Rate 75 75 Respiratory Rate Blood Pressure 181/84 O2 Sat by Pulse Oximetry 99 99 Oxygen Delivery Method Oxygen Flow Rate FIO2% 09/22/24 18:00 09/22/24 18:15 09/22/24 18:15 Temperature Pulse Rate 76 Respiratory Rate 14 Blood Pressure 199/86 193/91 O2 Sat by Pulse Oximetry 99 Oxygen Delivery Method Oxygen Flow Rate FIO2% 09/22/24 18:32 09/22/24 18:45 09/22/24 18:45 Temperature Pulse Rate 78 79 Respiratory Rate 14 Blood Pressure 176/89 O2 Sat by Pulse Oximetry Oxygen Delivery Method Oxygen Flow Rate FIO2% 09/22/24 18:46 09/22/24 18:46 09/22/24 18:46 Temperature Pulse Rate 80 Respiratory Rate 16 Blood Pressure 169/87 169/87 O2 Sat by Pulse Oximetry Oxygen Delivery Method Oxygen Flow Rate FIO2% 09/22/24 18:46 09/22/24 18:59 09/22/24 19:00 Temperature Pulse Rate 78 Respiratory Rate 14 Blood Pressure 169/87 167/84 O2 Sat by Pulse Oximetry Oxygen Delivery Method Oxygen Flow Rate FIO2% 09/22/24 19:01 09/22/24 20:28 09/22/24 19:15 Temperature Pulse Rate 78 76 Respiratory Rate 15 18 15 Blood Pressure O2 Sat by Pulse Oximetry Oxygen Delivery Method Oxygen Flow Rate FIO2% 09/22/24 19:15 09/22/24 19:30 09/22/24 19:30 Temperature Pulse Rate 78 Respiratory Rate 15 Blood Pressure 178/87 188/87 O2 Sat by Pulse Oximetry Oxygen Delivery Method Oxygen Flow Rate FIO2% 09/22/24 19:47 09/22/24 19:49 09/22/24 19:49 Temperature Pulse Rate 88 80 Respiratory Rate 16 Blood Pressure 204/94 O2 Sat by Pulse Oximetry 98 99 Oxygen Delivery Method Oxygen Flow Rate FIO2% 09/22/24 20:00 09/22/24 20:00 09/22/24 20:12 Temperature Pulse Rate 78 Respiratory Rate 16 Blood Pressure 180/83 199/96 O2 Sat by Pulse Oximetry 98 Oxygen Delivery Method Oxygen Flow Rate FIO2% 09/22/24 20:12 09/22/24 20:15 09/22/24 20:15 Temperature Pulse Rate 78 80 Respiratory Rate 13 15 Blood Pressure 195/97 O2 Sat by Pulse Oximetry 99 98 Oxygen Delivery Method Oxygen Flow Rate FIO2% 09/22/24 20:22 09/22/24 20:22 09/22/24 20:30 Temperature Pulse Rate 85 Respiratory Rate 15 Blood Pressure 186/88 180/86 O2 Sat by Pulse Oximetry 97 Oxygen Delivery Method Oxygen Flow Rate FIO2% 09/22/24 20:30 09/22/24 20:40 09/22/24 20:40 Temperature Pulse Rate 87 90 Respiratory Rate 20 15 Blood Pressure 166/80 O2 Sat by Pulse Oximetry 98 98 Oxygen Delivery Method Oxygen Flow Rate FIO2% 09/22/24 20:45 09/22/24 21:39 09/22/24 21:05 Temperature 98.8 F Pulse Rate 89 89 Respiratory Rate 15 17 Blood Pressure 191/91 O2 Sat by Pulse Oximetry 97 97 Oxygen Delivery Method Room Air Oxygen Flow Rate FIO2% 21 09/22/24 21:15 09/22/24 21:30 09/22/24 21:45 Temperature Pulse Rate 90 90 89 Respiratory Rate 19 29 H 34 H Blood Pressure 174/90 191/82 162/76 O2 Sat by Pulse Oximetry 98 97 98 Oxygen Delivery Method Oxygen Flow Rate FIO2% 09/22/24 22:00 09/22/24 22:15 09/22/24 22:30 Temperature Pulse Rate 91 H 91 H 89 Respiratory Rate 16 21 15 Blood Pressure 162/69 147/71 141/68 O2 Sat by Pulse Oximetry 96 96 96 Oxygen Delivery Method Oxygen Flow Rate FIO2% 09/22/24 22:45 09/22/24 23:00 09/22/24 23:15 Temperature Pulse Rate 91 H 90 86 Respiratory Rate 21 21 22 Blood Pressure 157/75 144/65 137/65 O2 Sat by Pulse Oximetry 95 95 95 Oxygen Delivery Method Oxygen Flow Rate FIO2% 09/22/24 23:45 09/22/24 23:30 09/23/24 00:00 Temperature 98.4 F Pulse Rate 85 88 86 Respiratory Rate 16 15 19 Blood Pressure 139/64 135/65 130/63 O2 Sat by Pulse Oximetry 94 L 92 L 96 Oxygen Delivery Method Oxygen Flow Rate FIO2% 09/23/24 00:15 09/23/24 00:30 09/23/24 00:45 Temperature Pulse Rate 82 83 84 Respiratory Rate 16 15 17 Blood Pressure 121/59 131/64 121/56 O2 Sat by Pulse Oximetry 94 L 93 L 95 Oxygen Delivery Method Oxygen Flow Rate FIO2% 09/23/24 01:00 09/23/24 01:15 09/23/24 01:30 Temperature Pulse Rate 81 79 79 Respiratory Rate 16 21 26 H Blood Pressure 119/57 106/53 106/57 O2 Sat by Pulse Oximetry 95 94 L 97 Oxygen Delivery Method Oxygen Flow Rate FIO2% 09/23/24 01:45 09/23/24 02:00 09/23/24 02:15 Temperature Pulse Rate 73 75 80 Respiratory Rate 17 17 31 H Blood Pressure 108/54 125/57 121/57 O2 Sat by Pulse Oximetry 94 L 93 L 97 Oxygen Delivery Method Oxygen Flow Rate FIO2% 09/23/24 02:30 09/23/24 02:45 09/23/24 03:00 Temperature Pulse Rate 72 72 73 Respiratory Rate 13 19 15 Blood Pressure 119/57 117/56 127/62 O2 Sat by Pulse Oximetry 95 94 L 95 Oxygen Delivery Method Oxygen Flow Rate FIO2% 09/23/24 03:15 09/23/24 03:30 09/23/24 03:45 Temperature Pulse Rate 69 72 72 Respiratory Rate 15 15 14 Blood Pressure 115/57 107/51 107/55 O2 Sat by Pulse Oximetry 96 91 L 91 L Oxygen Delivery Method Oxygen Flow Rate FIO2% 09/23/24 04:00 09/23/24 04:15 09/23/24 04:30 Temperature 98 F Pulse Rate 70 69 69 Respiratory Rate 13 14 14 Blood Pressure 109/59 111/59 114/61 O2 Sat by Pulse Oximetry 92 L 93 L 93 L Oxygen Delivery Method Oxygen Flow Rate FIO2% 09/23/24 04:45 09/23/24 05:00 09/23/24 05:15 Temperature Pulse Rate 75 83 65 Respiratory Rate 16 19 14 Blood Pressure 104/61 111/59 112/57 O2 Sat by Pulse Oximetry 92 L 97 95 Oxygen Delivery Method Oxygen Flow Rate FIO2% 09/23/24 06:15 09/23/24 05:30 09/23/24 05:45 Temperature Pulse Rate 69 74 74 Respiratory Rate 14 13 17 Blood Pressure 105/55 116/56 121/57 O2 Sat by Pulse Oximetry 93 L 96 99 Oxygen Delivery Method Oxygen Flow Rate FIO2% 09/23/24 06:00 09/23/24 06:30 09/23/24 07:00 Temperature Pulse Rate 67 75 71 Respiratory Rate 15 13 12 Blood Pressure 112/60 109/57 136/60 O2 Sat by Pulse Oximetry 95 91 L 97 Oxygen Delivery Method Oxygen Flow Rate FIO2% 09/23/24 08:00 09/23/24 07:00 09/23/24 09:00 Temperature 98.1 F Pulse Rate 79 70 Respiratory Rate 23 16 Blood Pressure 132/68 128/65 O2 Sat by Pulse Oximetry 96 96 Oxygen Delivery Method Room Air Oxygen Flow Rate FIO2% 21 09/23/24 10:00 09/23/24 11:00 09/23/24 12:00 Temperature 98.0 F Pulse Rate 67 68 66 Respiratory Rate 17 15 13 Blood Pressure 131/70 133/78 137/70 O2 Sat by Pulse Oximetry 95 96 97 Oxygen Delivery Method Oxygen Flow Rate FIO2% 09/23/24 13:00 09/23/24 14:00 09/23/24 15:00 Temperature Pulse Rate 70 71 Respiratory Rate 21 13 15 Blood Pressure 135/79 134/66 118/73 O2 Sat by Pulse Oximetry 98 96 Oxygen Delivery Method Oxygen Flow Rate FIO2% 09/23/24 16:00 09/23/24 17:00 09/23/24 18:00 Temperature 98.3 F Pulse Rate Respiratory Rate 16 15 16 Blood Pressure 143/71 144/86 159/89 O2 Sat by Pulse Oximetry Oxygen Delivery Method Oxygen Flow Rate FIO2% 09/23/24 19:00 09/23/24 19:00 09/23/24 20:00 Temperature 98.4 F Pulse Rate 65 Respiratory Rate 15 20 Blood Pressure 147/68 140/73 O2 Sat by Pulse Oximetry Oxygen Delivery Method Room Air Oxygen Flow Rate FIO2% 21 09/23/24 21:00 09/23/24 22:00 09/23/24 23:00 Temperature Pulse Rate 61 64 69 Respiratory Rate 15 15 24 Blood Pressure 133/63 139/83 122/71 O2 Sat by Pulse Oximetry 96 96 Oxygen Delivery Method Oxygen Flow Rate FIO2% 09/24/24 00:00 09/24/24 01:00 09/24/24 02:00 Temperature 98.1 F Pulse Rate 52 L 52 L 59 L Respiratory Rate 24 20 16 Blood Pressure 100/54 118/58 147/66 O2 Sat by Pulse Oximetry 94 L 97 100 Oxygen Delivery Method Oxygen Flow Rate FIO2% 09/24/24 03:00 09/24/24 04:00 09/24/24 03:00 Temperature Pulse Rate 49 L 51 L Respiratory Rate 15 15 Blood Pressure 103/58 121/59 O2 Sat by Pulse Oximetry 100 Oxygen Delivery Method Nasal Cannula Nasal Cannula Nasal Cannula Oxygen Flow Rate 2 2 2 FIO2% 28 09/24/24 08:08 Temperature Pulse Rate Respiratory Rate Blood Pressure O2 Sat by Pulse Oximetry Oxygen Delivery Method Nasal Cannula Oxygen Flow Rate 2 FIO2% 28 Labs: Laboratory Last Values WBC 7.6 X10^3/uL (3.6-10.0) 09/24/24 04:21 RBC 4.53 X10^6/uL (3.5-5.4) 09/24/24 04:21 Hgb 11.9 g/dL (12.0-16.0) L 09/24/24 04:21 Hct 35.3 % (36.0-47.0) L 09/24/24 04:21 MCV 78.1 fL (80.0-100.0) L 09/24/24 04:21 MCH 26.2 pg (27.0-34.0) L 09/24/24 04:21 MCHC 33.6 g/dL (33.0-35.0) 09/24/24 04:21 RDW 15.6 % (11.6-16.5) 09/24/24 04:21 Plt Count 221 X10^3/uL (150.0-450.0) 09/24/24 04:21 MPV 9.5 fL (7.4-11.0) 09/24/24 04:21 Neut % (Auto) 64.2 % (42.0-75.0) 09/24/24 04:21 Lymph % (Auto) 25.7 % (21.0-51.0) 09/24/24 04:21 [place] % (Auto) 6.0 % (0.0-13.0) 09/24/24 04:21 Eos % (Auto) 3.5 % (0.9-2.9) H 09/24/24 04:21 Baso % (Auto) 0.6 % (0.2-1.0) 09/24/24 04:21 Neut # (Auto) 4.9 x10^3/uL (2.2-4.8) H 09/24/24 04:21 Lymph # (Auto) 1.9 X10^3/uL (1.3-2.9) 09/24/24 04:21 [place] # (Auto) 0.5 x10^3/uL (0.3-0.8) 09/24/24 04:21 Eos # (Auto) 0.3 x10^3/uL (0.0-0.2) H 09/24/24 04:21 Baso # (Auto) 0.0 X10^3/uL (0.0-0.1) 09/24/24 04:21 Absolute Nucleated RBC 0.1 /100WBC 09/24/24 04:21 PT 14.0 SECONDS (11.8-14.3) 09/22/24 17:05 INR Target Range - 09/22/24 17:05 INR 1.06 (0.8-1.3) 09/22/24 17:05 APTT 29.4 SECONDS (22.9-36.5) 09/22/24 17:05 PTT Comment - 09/22/24 17:05 Sodium 139 mmol/L (136-145) 09/24/24 04:21 Corrected Sodium 142 mmol/L (136-145) 09/24/24 04:21 Potassium 3.9 mmol/L (3.5-5.1) 09/24/24 04:21 Chloride 103 mmol/L (98-107) 09/24/24 04:21 Carbon Dioxide 27.1 mmol/L (21-32) 09/24/24 04:21 BUN 11 mg/dL (7-18) 09/24/24 04:21 Creatinine 0.68 mg/dL (0.55-1.02) 09/24/24 04:21 Est GFR (MDRD) Af Amer > 60 (>60) 09/24/24 04:21 Est GFR (MDRD) Non-Af > 60 (>60) 09/24/24 04:21 Glucose 213 mg/dL (65-99) H 09/24/24 04:21 POC Glucose (mg/dL) 176 mg/dL (65-99) H 09/24/24 05:56 Calcium 8.8 mg/dL (8.5-10.1) 09/24/24 04:21 Corrected Calcium 9.7 mg/dL (8.5-10.1) 09/24/24 04:21 Magnesium 1.6 mg/dL (2.0-2.9) L 09/24/24 04:21 Total Bilirubin 0.20 mg/dL (0.2-1.0) 09/24/24 04:21 AST 16 Units/L (15-37) 09/24/24 04:21 ALT 22 Units/L (12-78) 09/24/24 04:21 Alkaline Phosphatase 90 Units/L (46-116) 09/24/24 04:21 Creatine Kinase 112 Units/L (26-192) 09/22/24 17:05 Troponin I High Sens < 4.0 ng/L (4.0-60.0) L 09/22/24 20:10 Total Protein 6.4 g/dL (6.4-8.2) 09/24/24 04:21 Albumin 2.9 g/dL (3.4-5.0) L 09/24/24 04:21 Globulin 3.5 g/dL (2.5-4.5) 09/24/24 04:21 Albumin/Globulin Ratio 0.8 Ratio (1.1-2.1) L 09/24/24 04:21 HCG, Qual Negative <10 mIU/mL 09/22/24 17:05 Reason For Visit: HTN EMERGENCY/HEADACHE/N/V Discharge Diagnosis All Active Problems (Updated 09/23/24 @ 09:34 by Kimber Escalante MD) HTN (hypertension) (Chronic) Type 2 diabetes mellitus (Chronic) Hypomagnesemia (Acute) Hypokalemia (Acute) Hypertensive emergency without congestive heart failure (Acute) Headache (Acute) Elevated BP without diagnosis of hypertension (Acute) Cough (Acute) Heart murmur (Chronic) Low grade fever (Acute) Rhinitis (Acute) Frontal sinusitis (Acute) Wheezing (Acute) Vaginal bleeding (Acute) Plan of Treatment: Continue with present treatment and follow up plan. Pt is to keep follow up appointment as instructed and take medications as ordered. Discharge Medications Discharge Medications: No Known Allergies Allergy (Verified 09/22/24 14:56) New Prescriptions lisinopril 10 mg tablet 10 mg PO DAILY 30 days #30 tabs 09/24/24 [Rx] Discharge Disposition Discharge Disposition: To home Discharge Condition: Stable Discharge Plan Discharge Plan Hospital Course: Ms. Vila is a 43-year-old female with a past medical history of type 2 diabetes, hypertension presented with headache, nausea and elevated BP. She used to be on blood pressure medication years ago but stopped as she had significant weight loss. She says she has gained 50 pounds back and did not restart taking her blood pressure medications. She was seen for URI a few weeks ago and was noted to have elevated blood pressure but did not follow-up. She r eports having worsening headache and nausea for the past couple days. She also had intermittent shortness of breath. She checked her blood pressure yesterday and it was 177/113. In the ER her blood pressure was 204/94. She was given hydralazine, clonidine, lisinopril but her blood pressure continued to remain elevated. She was started on Cardene drip and admitted for further management. She was admitted to the ICU. She is feeling better this morning. Her blood pressure is better controlled, 132/68 this morning. She was weaned off Cardene drip. She was started on lisinopril 10 mg. Her labs were monitored daily and electrolytes replaced as needed. Repeat chest x-ray was clear. She also had echocardiogram done. Patient was feeling better and stable to be discharged. She will follow-up with PCP regarding hypertension and diabetes. She will also follow-up patient for echo results. Patient Disposition: 01 HOME, SELF-CARE Condition: Stable Health Concerns: Post Hospitalization: new medications and changes needed to prevent readmission or further decline. Pt educated and given instructions on all concerns. Care Plan Goals: Problem: Pain/Alteration in Comfort Goal: Improve/ Resolve Pain; Achieve Pain Tolerance Instructions: Take pain medications as prescribed. Contact your primary care provider if your pain is unrelieved or worsens. Follow up with primary care provider as directed. Plan of Treatment: Continue with present treatment and follow up plan. Pt is to keep follow up appointment as instructed and take medications as ordered. Prescription drug monitoring program results: PDMP reviewed and no concerns identified Prescriptions: New lisinopril 10 mg Tablet 10 mg PO DAILY 30 Days Qty: 30 0RF Continued levocetirizine [Xyzal] 5 mg tablet 5 mg PO QDAY 30 Days Qty: 30 1RF Follow ups/Referrals Follow ups/Referrals: Charlotte June FNP [Nurse Practitioner] - 10/01/24 10:00 am Instructions Instructions: How to Take Your Blood Pressure, Managing Your Hypertension, Hypertension Stand Alone Forms: Excuse From Work or School, Find Help Web Site, Post Hospital Follow Up Care
== END 2024-09-24 15:10 | disposition home or self-care (01) | DRG 305 ==
LOC: ER 14:34 → ICU 20:27
PROVIDERS: ADMIT Family Medicine; ATTEND Family Medicine